=== PATIENT | female | born 1960 | race Caucasian/White ===

== ENCOUNTER 2018-02-24 05:53 | Day surgery (SDC) | payer MEDICARE, MEDICAID ==
[2018-02-19 10:59] LABS: BASOPHILS % (AUTO) 0.5 % (0-1); EOSINOPHILS # (AUTO) 0.2 X10'3 (0-0.9); EOSINOPHILS % (AUTO) 1.9 % (0-6); LYMPHOCYTES # (AUTO) 2.1 X10'3 (1.1-4.8); LYMPHOCYTES % (AUTO) 24.9 % (21-51); MEAN CORPUSCULAR HEMOGLOBIN 29.3 PG (27.0-31.0); MEAN CORPUSCULAR HGB CONC 33.9 % (33.0-36.5); MEAN CORPUSCULAR VOLUME 86.5 FL (78-98); MEAN PLATELET VOLUME 8.8 FL (7.4-10.4); MONOCYTES # (AUTO) 0.7 X10'3 (0-0.9); MONOCYTES % (AUTO) 8.2 % (2-12); NEUTROPHILS # (AUTO) 5.5 X10'3 (1.8-7.7); NEUTROPHILS % (AUTO) 64.5 % (42-75); PRE OP HEMATOCRIT 41.7 % (35.0-45.0); PRE OP HEMOGLOBIN 14.1 g/dL (12.0-16.0); PRE OP PLATELET COUNT 300 X10'3 (140-440); RED BLOOD COUNT 4.82 X10'6 (4.20-5.60); RED CELL DISTRIBUTION WIDTH 15.2 % (11.5-14.5)
[2018-02-19 11:05] LABS: CLARITY,URINE CLEAR (Clear); COLOR,URINE YELLOW (Yellow); GLUCOSE, URINE NEGATIVE (Neg); KETONES,URINE NEGATIVE (Neg); LEUKOCYTE ESTERASE ,URINE NEGATIVE (Neg); NITRITES, URINE NEGATIVE (Neg); OCCULT BLOOD,URINE NEGATIVE (Neg); PROTEIN,URINE NEGATIVE (Neg); UROBILINOGEN,URINE 0.2 E.U/dL (0.2-1.0)
[2018-02-19 11:06] LABS: UA COLLECTION TYPE CLN CATCH MIDSTREAM
[2018-02-19 11:23] LABS: ALBUMIN 3.7 G/DL (3.4-5.0); ALBUMIN/GLOBULIN RATIO 1.1 (1.1-1.5); ALKALINE PHOSPHATASE 71 IU/L (46-116); BLOOD UREA NITROGEN 15 MG/DL (7-18); BUN/CREATININE RATIO 19.2 (6.6-38.0); CALCIUM 9.1 MG/DL (8.5-10.1); CHLORIDE 107 MMOL/L (99-107); CREATININE 0.78 MG/DL (0.40-0.90); PRE OP ALT 30 U/L (30-65); PRE OP ANION GAP 8 (8-16); PRE OP AST 18 U/L (10-37); PRE OP BILIRUB, TOTAL 0.4 MG/DL (0.0-1.0); PRE OP GLUCOSE 101 MG/DL (70-104); PRE OP POTASSIUM 4.3 MMOL/L (3.4-5.1); PRE OP SODIUM 143 MMOL/L (135-145); TOTAL CARBON DIOXIDE 27.9 MMOL/L (24-32); TOTAL PROTEIN 7.2 G/DL (6.4-8.2); eGFR 76 ML/MIN
[2018-02-24] VITALS (9 sets, daily range): BP systolic 132–146; BP diastolic 43–85
[~2018-02-24] VITALS: Ht 160 cm; Wt 99.1 kg
[~2018-02-24 05:53] MED LIST: CHOL50004 PO; ESTR10TA VG; FENO160T PO; FLUO40CA PO; HYDR-3973 PO; IBUP-1986 PO; LANS30CA56 PO; PROG200C7 PO; QUET25TA34 PO; THYR120T2 PO; ZOLP10TA5 PO; [UNRECOGNIZED DRUG - OTHER] TOP; albuterol 2.5 MG/3 ML nebule NEB ONE; clindamycin-Cleocin 900mg/D5W 50 ML IV ONE; famotidine 20mg tablet PO ONE; ringers solution, lacted 1,000 ML IV SCH
[2018-02-24] MEDS ORDERED: BUPIVAcaine 0.5% inj/PF 30 ml vial ONE (06:41)
[2018-02-24] MEDS ORDERED: LIDOcaine 1% (10mg/ml) 2ml vial ONE (06:41)
[2018-02-24] MEDS ORDERED: fentaNYL/PF 50MCG/1 ML 2ML syringe ONE ×2 (08:12→08:44)
[2018-02-24] MEDS ORDERED: midazolam 2 mg/2 ml injection ONE (08:12)
[2018-02-24] MEDS ORDERED: LIDOcaine 2% (20mg/ml) 5ml vial ONE (08:14)
[2018-02-24] MEDS ORDERED: propofol inj 20 ML IV ONE (08:14)
[2018-02-24] MEDS ORDERED: sevoflurane 250ml liquid IH ONE (08:30)
[2018-02-24] MEDS ORDERED: ePHEDrine 50MG/ML INJ. ONE (08:30)
[2018-02-24] MEDS ORDERED: dexamethasone sod phosphate 4mg/ml inj. ONE (08:42)
[2018-02-24] MEDS ORDERED: ondansetron/PF 4mg/2ml inj ONE (08:56)
[2018-02-24] MEDS ORDERED: ringers solution, lacted 1,000 ML IV SCH (09:18)
[2018-02-24] MEDS ORDERED: proCHLORperazine 10 MG/2 ml inj IV PRN (09:20)
[2018-02-24] MEDS ORDERED: morphine 4 MG/ML inj SYRINge IV PRN ×2 (09:20)
[2018-02-24] MEDS ORDERED: ondansetron/PF 4mg/2ml inj IV PRN (09:20)
[2018-02-24] MEDS ORDERED: meperidine/PF 50mg/ml syringe IV PRN ×2 (09:20)
[2018-02-24] MEDS: meperidine/PF 50mg/ml syringe IV PRN ×2 (09:42→09:58)
== END 2018-02-24 10:25 | disposition home or self-care (01) ==
LOC: PAS 05:53
PROVIDERS: ATTEND Surgery
DX: K62.0 Anal polyp (principal); K64.4 Residual hemorrhoidal skin tags; K64.0 First degree hemorrhoids; K64.1 Second degree hemorrhoids; F17.210 Nicotine dependence, cigarettes, uncomplicated; G47.33 Obstructive sleep apnea (adult) (pediatric); E03.9 Hypothyroidism, unspecified; M19.90 Unspecified osteoarthritis, unspecified site; E66.9 Obesity, unspecified; I10 Essential (primary) hypertension; F32.9 Major depressive disorder, single episode, unspecified; K21.9 Gastro-esophageal reflux disease without esophagitis; M79.7 Fibromyalgia; Z90.49 Acquired absence of other specified parts of digestive tract; Z90.710 Acquired absence of both cervix and uterus; Z79.1 Long term (current) use of non-steroidal anti-inflammatories (NSAID); Z79.891 Long term (current) use of opiate analgesic; Z88.0 Allergy status to penicillin; Z88.1 Allergy status to other antibiotic agents; Z98.890 Other specified postprocedural states; Z79.899 Other long term (current) drug therapy; Z91.048 Other nonmedicinal substance allergy status; Z68.38 Body mass index [BMI] 38.0-38.9, adult
CPT/HCPCS: 36415; 45330; 46255; 46922; 80053; 81003; 85025; 93005; A6224; A6449; J1100; J2001; J2175; J2250; J2405; J2704; J3010; J3490; J7120; 88304; A7000

== ENCOUNTER 2018-02-25 01:22 | Emergency (ER) | payer MEDICARE, MEDICAID ==
[~2018-02-25] VITALS: Ht 157.5 cm; Wt 99.1 kg
[~2018-02-25 01:22] MED LIST changes: -albuterol 2.5 MG/3 ML nebule NEB ONE; -clindamycin-Cleocin 900mg/D5W 50 ML IV ONE; -famotidine 20mg tablet PO ONE; -ringers solution, lacted 1,000 ML IV SCH
[2018-02-25] MEDS ORDERED: LORazepam 1 MG tablet PO ONE (02:20)
[2018-02-25] MEDS ORDERED: oxyCODONE/APAP 10/325mg tablet PO ONE (02:20)
[2018-02-25] MEDS ORDERED: ketorolac trometh inj. 60 MG/2 ML VIAL IM ONE (02:20)
[2018-02-25 07:28] VITALS: BP 126/72
== END 2018-02-25 02:40 | disposition home or self-care (01) ==
LOC: ER 01:23
DX: G89.18 Other acute postprocedural pain (principal); K62.89 Other specified diseases of anus and rectum; Z88.0 Allergy status to penicillin; Z88.1 Allergy status to other antibiotic agents
CPT/HCPCS: 96372; 99283; J1885

== ENCOUNTER 2022-04-30 06:03 | Inpatient (IN) | payer MEDICARE, MEDICAID ==
[2022-04-23 14:12] LABS: BASOPHILS # (AUTO) 0.1 X10'3 (0-0.2); BASOPHILS % (AUTO) 1.1 % (0-1); EOSINOPHILS # (AUTO) 0.1 X10'3 (0-0.9); LYMPHOCYTES # (AUTO) 1.8 X10'3 (1.1-4.8); LYMPHOCYTES % (AUTO) 29.9 % (21-51); MEAN CORPUSCULAR HEMOGLOBIN 29.3 PG (27.0-31.0); MEAN CORPUSCULAR HGB CONC 33.8 g/dL (33.0-36.5); MEAN CORPUSCULAR VOLUME 86.7 FL (78-98); MEAN PLATELET VOLUME 8.2 FL (7.4-10.4); MONOCYTES # (AUTO) 0.5 X10'3 (0-0.9); MONOCYTES % (AUTO) 8.9 % (2-12); NEUTROPHILS # (AUTO) 3.7 X10'3 (1.8-7.7); NEUTROPHILS % (AUTO) 59.1 % (42-75); PRE OP HEMATOCRIT 42.2 % (35.0-45.0); PRE OP HEMOGLOBIN 14.3 g/dL (12.0-16.0); PRE OP PLATELET COUNT 348 X10'3 (140-440); RED BLOOD COUNT 4.87 X10'6 (4.20-5.60); RED CELL DISTRIBUTION WIDTH 14.4 % (11.5-14.5)
[2022-04-23 14:48] LABS: ALBUMIN 3.9 G/DL (3.4-5.0); ALKALINE PHOSPHATASE 52 IU/L (46-116); BLOOD UREA NITROGEN 17 MG/DL (7-18); BUN/CREATININE RATIO 18.5 (6.6-38.0); CALCIUM 9.2 MG/DL (8.5-10.1); CHLORIDE 104 MMOL/L (99-107); CREATININE 0.92 MG/DL (0.40-0.90); PRE OP ALT 33 U/L (30-65); PRE OP ANION GAP 7 (8-16); PRE OP AST 27 U/L (10-37); PRE OP BILIRUB, TOTAL 0.4 MG/DL (0.0-1.0); PRE OP GLUCOSE 90 MG/DL (70-104); PRE OP POTASSIUM 4.1 MMOL/L (3.4-5.1); PRE OP SODIUM 140 MMOL/L (135-145); TOTAL CARBON DIOXIDE 29.2 MMOL/L (24-32); TOTAL PROTEIN 7.7 G/DL (6.4-8.2); eGFR 62 ML/MIN
[2022-04-23 16:31] LABS: HEMOGLOBIN A1C 5.6 % (4.5-6.2)
[~2022-04-30] VITALS: Ht 160 cm; Wt 96.6 kg
[2022-04-30] VITALS (22 sets, daily range): BP systolic 100–173; BP diastolic 56–78
[~2022-04-30 06:03] MED LIST changes: +DOCU100C40 PO; -ESTR10TA VG; +ESTR1PAT96 TOP; +FENO134C21 PO; -FENO160T PO; +HYDR-3686 PO; +HYDR-3972 PO; -HYDR-3973 PO; +LIRA0.6P PO; +LISI1TAB49 PO; -PROG200C7 PO; -QUET25TA34 PO; +QUET25TA36 PO; -THYR120T2 PO; +THYR30TA2 PO; -[UNRECOGNIZED DRUG - OTHER] TOP; +clindamycin-Cleocin 900mg/D5W 50 ML IV ONE; +famotidine 20mg tablet PO ONE; +ringers solution, lacted 1,000 ML IV SCH; +tranexamic acid 650mg tablet PO ONE; +vancomycin 1,500 MG in NS 300ml IV soln IV ONE
[2022-04-30] MEDS ORDERED: proCHLORperazine 10 MG/2 ml inj IV PRN (08:05)
[2022-04-30] MEDS ORDERED: morphine 2 MG/ML inj. syringe IV PRN (08:05)
[2022-04-30] MEDS ORDERED: morphine 4 MG/ML inj SYRINge IV PRN (08:05)
[2022-04-30] MEDS ORDERED: ondansetron/PF 4mg/2ml inj IV PRN ×2 (08:05→11:10)
[2022-04-30] MEDS ORDERED: meperidine/PF 25mg/ml syringe IV PRN ×3 (08:05)
[2022-04-30] MEDS ORDERED: ringers solution, lacted 1,000 ML IV SCH (08:05)
[2022-04-30] MEDS ORDERED: ROPIVAcaine 0.5% (5mg/ml) 30ml vial ONE (08:13)
[2022-04-30] MEDS ORDERED: ketorolac trometh. 30mg/ml inj. ONE (08:13)
[2022-04-30] MEDS ORDERED: fentaNYL/PF 50MCG/1 ML 2ML syringe ONE (09:27)
[2022-04-30] MEDS ORDERED: MIDAZolam 1mg/ml 10ml vial ONE (09:27)
[2022-04-30] MEDS ORDERED: ePHEDrine 50MG/ML INJ. ONE (09:57)
[2022-04-30] MEDS ORDERED: propofol inj 20 ML IV ONE (09:57)
[2022-04-30] MEDS ORDERED: cloNIDine hcl/PF 100mcg/ml inj ONE (10:25)
[2022-04-30] MEDS ORDERED: BUPIVAcaine 0.5% inj/PF 30 ML ONE (10:47)
[2022-04-30] MEDS ORDERED: HYDROmorphone 1 mg/ml syringe IV PRN (11:10)
[2022-04-30] MEDS ORDERED: HYDROcodone/acetaminophen 10/325mg tab PO PRN (11:10)
[2022-04-30] MEDS ORDERED: oxyCODONE IR 5mg (immed. release) tablet PO PRN (11:10)
[2022-04-30] MEDS ORDERED: magnesium hydroxide 30ml (MOM) UD suspension PO PRN (11:10)
[2022-04-30] MEDS ORDERED: naloxone 0.4 mg/ml inj IV PRN (11:10)
[2022-04-30] MEDS ORDERED: bisacodyl 10mg suppository rectal RC PRN (11:10)
[2022-04-30] MEDS ORDERED: diphenhydrAMINE 25mg capsule PO PRN ×2 (11:10)
[2022-04-30] MEDS ORDERED: ibuprofen tablet 400 MG TABLET PO PRN (11:10)
[2022-04-30] MEDS ORDERED: acetaminophen 325mg tablet PO PRN (11:10)
--- NOTE | 2022-04-30 11:30 | NUR ---
Received from OR via HOSPITAL BED , accompanied by Anesthesiologist DR TREVINO and report given by Anesthesiolgist. PT PRESENTS WITH 20G LEFT HAND, DRESSING ON RIGHT KNEE WRAP WITH POWDER PACK, VSS. Addendum: 04/30/22 at 1145 by Rossy Dewitt RN, RN Amended: Links added.
--- NOTE | 2022-04-30 12:38 | NUR ---
I CALLED PT'S DAUGHTER SAROJ WITH AN UPDATE. PT OUT OF OR IN RECOVERY DOING FINE. WAITING TO GOT TO THE FLOOR. Addendum: 04/30/22 at 1239 by Rossy Dewitt RN, RN Amended: Links added.
--- NOTE | 2022-04-30 13:10 | NUR ---
Report called to receiving nurse KEVIN STRAUSS. Transferred via HOSPITAL BED TO ROOM 4012A BY ALEIDA STRAUSS. BED IN LOW LOCKED POSTION WITH CALL LIGHT IN REACH, PT HOOKE UP TO VITALS MONITOR. PT BELONGING 1 BAG TO ROOM 4012A WITH PT. Special Issues communicated to receiving nurse. Addendum: 04/30/22 at 1314 by Rossy Dewitt RN RN Amended: Links added.
[2022-04-30] MEDS: acetaminophen 325mg tablet PO SCH ×2 (14:37→21:58)
--- NOTE | 2022-04-30 15:47 | NUR ---
Patient wanting IV pain meds first, I educated we give oral first. Then she asked to have IV next, I stated sure it is every four hours, she stated "last time I got it every two hours"
[2022-04-30] MEDS: HYDROmorphone inj. 0.5 MG/0.5 ML DISP.SYRIN IV PRN (17:27)
--- NOTE | 2022-04-30 18:12 | NUR ---
Problems reprioritized. Patient report given, questions answered & plan of care reviewed with Ivonne STRAUSS.
--- NOTE | 2022-04-30 18:20 | NUR ---
Patient in room ORTHO 4007. I have received report from Aide STRAUSS and had the opportunity to ask questions and assume patient care. Addendum: 04/30/22 at 1849 by Ivonne Wilson RN Amended: Links added.
[2022-04-30] MEDS ORDERED: clindamycin-Cleocin 900mg/D5W 50 ML IV ONE (19:10)
[2022-04-30] MEDS ORDERED: vancomycin/NS 1 GM ADD-VANTAGE 250 ML IV SCH (20:00)
[2022-04-30] MEDS: FLUoxetine 20mg capsule PO SCH (21:48)
[2022-04-30] MEDS: fenofibrate 145mg tablet PO SCH (21:49)
[2022-04-30] MEDS: hydrOXYzine 25 MG tablet PO SCH (21:49)
[2022-04-30] MEDS: sennosides 8.6mg tablet PO SCH (21:50)
[2022-04-30] MEDS: docusate sod 100mg capsule PO SCH (21:50)
[2022-04-30] MEDS: QUEtiapine 25mg tablet PO PRN (21:56)
[2022-04-30] MEDS: zolpidem 5mg tablet PO PRN (21:56)
[2022-04-30] MEDS: pantoprazole 40mg Tablet.DR PO SCH (21:57)
[2022-04-30] MEDS: oxyCODONE IR 5mg (immed. release) tablet PO PRN (21:58)
[2022-04-30] MEDS: [UNRECOGNIZED DRUG - OTHER] SQ SCH (21:59)
[2022-04-30] MEDS: LIRAGLUTIDE SQ SCH (21:59)
[2022-04-30] MEDS: potassium cl 20mEq in 1/2 NS 1,000 ML IV SCH ×2 (22:00→22:08)
[2022-05-01] VITALS: BP 137/71
[2022-05-01] MEDS: acetaminophen 325mg tablet PO SCH ×4 (02:56→20:27)
[2022-05-01] MEDS: HYDROmorphone inj. 0.5 MG/0.5 ML DISP.SYRIN IV PRN ×4 (03:03→23:16)
[2022-05-01 04:00] VITALS: BP 150/74
[2022-05-01 06:00] VITALS: BP 144/84
[2022-05-01] MEDS: oxyCODONE IR 5mg (immed. release) tablet PO PRN ×4 (06:01→20:27)
[2022-05-01] MEDS: potassium cl 20mEq in 1/2 NS 1,000 ML IV SCH ×3 (06:02→22:26)
--- NOTE | 2022-05-01 06:30 | NUR ---
Problems reprioritized. Patient report given, questions answered & plan of care reviewed with Aakash STRAUSS. Addendum: 05/01/22 at 0736 by Ivonne Wilson RN Amended: Links added.
--- NOTE | 2022-05-01 07:03 | NUR ---
Patient in room ORTHO 4012. I have received report from odessa song and had the opportunity to ask questions and assume patient care.
[2022-05-01 07:22] LABS: ANION GAP 6 (8-16); CHLORIDE 107 MMOL/L (99-107); POTASSIUM 4.2 MMOL/L (3.5-5.1); SODIUM 139 MMOL/L (135-145); TOTAL CARBON DIOXIDE 26.2 MMOL/L (24-32)
[2022-05-01 07:23] LABS: BASOPHILS % (AUTO) 0.3 % (0-1); EOSINOPHILS % (AUTO) 0 % (0-6); HEMATOCRIT 32.1 % (35.0-45.0); HEMOGLOBIN 10.6 g/dl (12.0-16.0); LYMPHOCYTES # (AUTO) 1.3 X10'3 (1.1-4.8); LYMPHOCYTES % (AUTO) 10.8 % (21-51); MEAN CORPUSCULAR HEMOGLOBIN 28.5 PG (27.0-31.0); MEAN CORPUSCULAR VOLUME 86.3 FL (78-98); MEAN PLATELET VOLUME 8.8 FL (7.4-10.4); MONOCYTES # (AUTO) 1.2 X10'3 (0-0.9); MONOCYTES % (AUTO) 9.8 % (2-12); NEUTROPHILS # (AUTO) 9.4 X10'3 (1.8-7.7); NEUTROPHILS % (AUTO) 79.1 % (42-75); PLATELET COUNT 300 X10'3 (140-440); RED BLOOD COUNT 3.72 X10'6 (4.20-5.60); RED CELL DISTRIBUTION WIDTH 14.4 % (11.5-14.5); WHITE BLOOD COUNT 11.9 X10'3 (4.5-11.0)
[2022-05-01] MEDS: cholecalciferol (vitamin D3) 1,000 unit (25mcg) tablet PO SCH (08:13)
[2022-05-01] MEDS: lisinopril 10 MG tablet PO SCH (08:14)
[2022-05-01] MEDS: HYDROchlorothiazide 12.5mg capsule PO SCH (08:14)
[2022-05-01] MEDS: thyroid, pork 30mg tablet PO SCH (08:16)
[2022-05-01] MEDS: aspirin 325mg tablet PO SCH (08:16)
[2022-05-01] MEDS: pantoprazole 40mg Tablet.DR PO SCH ×2 (08:17→20:26)
[2022-05-01 10:00] VITALS: BP 128/68
--- NOTE | 2022-05-01 14:16 | NUR ---
attempted to call power mule operator in order to order the pt larger portions per their request, unable to reach them.
[2022-05-01 18:00] VITALS: BP 127/67
--- NOTE | 2022-05-01 18:29 | NUR ---
Problems reprioritized. Patient report given, questions answered & plan of care reviewed with katharina song.
[2022-05-01] MEDS: fenofibrate 145mg tablet PO SCH (20:26)
[2022-05-01] MEDS: FLUoxetine 20mg capsule PO SCH (20:26)
[2022-05-01] MEDS: sennosides 8.6mg tablet PO SCH (20:26)
[2022-05-01] MEDS: hydrOXYzine 25 MG tablet PO SCH (20:26)
[2022-05-01] MEDS: docusate sod 100mg capsule PO SCH (20:26)
[2022-05-01] MEDS: [UNRECOGNIZED DRUG - OTHER] SQ SCH (20:27)
[2022-05-01] MEDS: LIRAGLUTIDE SQ SCH (20:27)
[2022-05-01 22:00] VITALS: BP 130/67
[2022-05-02] MEDS: zolpidem 5mg tablet PO PRN (00:22)
[2022-05-02] MEDS: oxyCODONE IR 5mg (immed. release) tablet PO PRN ×4 (00:22→15:47)
[2022-05-02] MEDS: QUEtiapine 25mg tablet PO PRN (00:22)
[2022-05-02] MEDS: potassium cl 20mEq in 1/2 NS 1,000 ML IV SCH (03:10)
[2022-05-02] MEDS: acetaminophen 325mg tablet PO SCH ×2 (04:45→07:50)
[2022-05-02 06:00] VITALS: BP 139/71
--- NOTE | 2022-05-02 06:41 | NUR ---
Patient in room ORTHO 4012. I have received report from katharina song and had the opportunity to ask questions and assume patient care.
--- NOTE | 2022-05-02 06:42 | NUR ---
reported to days. noted pt resting and waiting for PT. oxy given at 3351
[2022-05-02] MEDS: thyroid, pork 30mg tablet PO SCH (07:28)
[2022-05-02 07:42] LABS: BASOPHILS % (AUTO) 0.5 % (0-1); EOSINOPHILS # (AUTO) 0.3 X10'3 (0-0.9); EOSINOPHILS % (AUTO) 3.8 % (0-6); HEMATOCRIT 31.8 % (35.0-45.0); HEMOGLOBIN 10.7 g/dl (12.0-16.0); LYMPHOCYTES # (AUTO) 1.7 X10'3 (1.1-4.8); LYMPHOCYTES % (AUTO) 20.9 % (21-51); MEAN CORPUSCULAR HGB CONC 33.8 g/dL (33.0-36.5); MEAN CORPUSCULAR VOLUME 85.8 FL (78-98); MEAN PLATELET VOLUME 8.7 FL (7.4-10.4); MONOCYTES # (AUTO) 0.9 X10'3 (0-0.9); MONOCYTES % (AUTO) 11.4 % (2-12); NEUTROPHILS # (AUTO) 5.2 X10'3 (1.8-7.7); NEUTROPHILS % (AUTO) 63.4 % (42-75); PLATELET COUNT 288 X10'3 (140-440); RED BLOOD COUNT 3.71 X10'6 (4.20-5.60); RED CELL DISTRIBUTION WIDTH 14.5 % (11.5-14.5); WHITE BLOOD COUNT 8.2 X10'3 (4.5-11.0)
[2022-05-02] MEDS: HYDROchlorothiazide 12.5mg capsule PO SCH (07:50)
[2022-05-02] MEDS: cholecalciferol (vitamin D3) 1,000 unit (25mcg) tablet PO SCH (07:50)
[2022-05-02] MEDS: aspirin 325mg tablet PO SCH (07:50)
[2022-05-02] MEDS: pantoprazole 40mg Tablet.DR PO SCH (07:50)
[2022-05-02] MEDS: HYDROmorphone inj. 0.5 MG/0.5 ML DISP.SYRIN IV PRN ×2 (07:51→13:52)
[2022-05-02] MEDS: lisinopril 10 MG tablet PO SCH (07:51)
[2022-05-02 10:00] VITALS: BP 126/63
[2022-05-02] MEDS ORDERED: acetaminophen 325mg tablet PO PRN (11:10)
--- NOTE | 2022-05-02 12:18 | NUR ---
Per RN pt requesting to speak with dietitian regarding food preferences as pt still hungry after meals despite 100% PO intake on regular diet. Pt seen at bedside, food preferences were obtained and d/w dietary, see below. Pt denies food allergies. Will continue to follow. Recommendations: 1) Continue regular diet 2) [place] food preferences: Alternate yogurt and cottage cheese WB; Rice Krispies, banana, milk, and double eggs WB; Iced tea with lemon juice and double meat BIDLD; Coffee, cranberry juice, and extra salt and pepper TID 3) Routine bowel care 4) Weekly scaled weights Addendum: 05/02/22 at [address] Amended: Links added.
--- NOTE | 2022-05-02 13:32 | NUR ---
per pt she wants to ask dr cox about staying one more night since daughter will be in town tomorrow. i tried to call him and was unable to reach him. i will try again later.
--- NOTE | 2022-05-02 14:22 | NUR ---
pt was able to find help and a ride, so she does want to go home. i will get the discharge ready and she will be ready to go after 5 pm.
--- NOTE | 2022-05-02 15:00 | NUR ---
I agree with Zamzam STRAUSS physical assessment. Will continue to monitor patient
--- NOTE | 2022-05-02 15:35 | NUR ---
Patient in room ORTHO 4012. I have received report from FAITH STRAUSS and had the opportunity to ask questions and assume patient care.
--- NOTE | 2022-05-02 15:37 | NUR ---
Problems reprioritized. Patient report given, questions answered & plan of care reviewed with KEO STRAUSS.
--- NOTE | 2022-05-02 17:43 | NUR ---
Pt discharged in stable condition to home. Belongings sent with pt. Personal medications sent with patient. IV removed tip intact no complications.
[2022-05-04] MEDS ORDERED: Estradiol 0.025mg/day patch (1 per week) TD SCH (21:00)
== END 2022-05-02 17:30 | disposition home or self-care (01) | DRG 470 ==
LOC: PAS IN 06:03 → ORTHO 4S 13:17
PROVIDERS: ADMIT Orthopaedic Surgery; ATTEND Orthopaedic Surgery
PROC: 8E0YXBZ Computer Assisted Procedure of Lower Extremity (ICD-10-PCS; 2022-04-30)
PROC: 3E0T3BZ Introduction of Anesthetic Agent into Peripheral Nerves and Plexi, Percutaneous Approach (ICD-10-PCS; 2022-04-30)
PROC: 3E0T33Z Introduction of Anti-inflammatory into Peripheral Nerves and Plexi, Percutaneous Approach (ICD-10-PCS; 2022-04-30)
PROC: 0SRD0JZ Replacement of Left Knee Joint with Synthetic Substitute, Open Approach (ICD-10-PCS; principal; 2022-04-30 09:22)
DX: M17.12 Unilateral primary osteoarthritis, left knee (principal); F32.A Depression, unspecified; E66.01 Morbid (severe) obesity due to excess calories; I10 Essential (primary) hypertension; G47.30 Sleep apnea, unspecified; K21.9 Gastro-esophageal reflux disease without esophagitis; M79.7 Fibromyalgia; Z88.8 Allergy status to other drugs, medicaments and biological substances; Z68.37 Body mass index [BMI] 37.0-37.9, adult; Z79.899 Other long term (current) drug therapy
CPT/HCPCS: 36415; 71046; 80051; 80053; 82948; 83036; 84443; 85025; 87081; 97110; 97116; 97161; 97530; A4215; A6258; A7000; C1776; G0378; J0735; J1170; J1885; J2250; J2405; J2704; J2795; J3010; J3370; J3480; J3490; J7040; J7120; Q0177; S0020